=== PATIENT | male | born 1985 | race Two or more races ===

== ENCOUNTER 2020-11-12 17:35 | Emergency (ER) | payer SELFPAY ==
[~2020-11-12] VITALS: Ht 180.3 cm; Wt 77.1 kg
[2020-11-12] MEDS ORDERED: ONDANSETRON HCL/PF 4 MG/2 ML VIAL ONE (18:09)
[2020-11-12] MEDS ORDERED: MORPHINE SULFATE INJ 2 MG/ML DISP.SYRIN ONE (18:10)
[2020-11-12] MEDS: ONDANSETRON HCL/PF 4 MG/2 ML VIAL IVP ONE (18:10)
[2020-11-12] MEDS: IV NS 0.9% 1,000 ML BAG IV ONE (18:10)
[2020-11-12] MEDS: MORPHINE SULFATE INJ 2 MG/ML DISP.SYRIN IV ONE (18:10)
[2020-11-12 18:12] LABS: BASOPHILS % (AUTO) 0.4 % (0.0-2.0); EOSINOPHILS % (AUTO) 0.1 % (0.0-6.0); HEMATOCRIT 42 % (39-51); HEMOGLOBIN 14.5 g/dL (13.5-17.5); LYMPHOCYTES # (AUTO) 1.6 K/uL (0.8-4.8); LYMPHOCYTES % (AUTO) 21.2 % (20.0-44.0); MEAN CORPUSCULAR HGB CONC 34 g/dl (31.0-36.0); MEAN CORPUSCULAR VOLUME 92 fL (80-96); MONOCYTES # (AUTO) 0.3 K/uL (0.1-1.30); MONOCYTES % (AUTO) 4.2 % (2.0-12.0); NEUTROPHILS # (AUTO) 5.7 K/uL (1.8-8.9); NEUTROPHILS % (AUTO) 74.1 % (43.0-81.0); PLATELET COUNT (AUTO) 364 K/uL (150-450); RED BLOOD CELL COUNT(AUTO) 4.57 MIL/uL (4.5-6.0); WHITE BLOOD COUNT (AUTO) 7.7 K/uL (4.3-11.0)
--- NOTE | 2020-11-12 18:16 | NUR ---
Patient came in to the er c/o right rib pain. On room air, breathing evenly and unlabored. Connected to the monitor and pulse ox. kept comfortable, will continue to monitor accordingly.
--- NOTE | 2020-11-12 18:20 | NUR ---
kristine at bedside for x-ray.
[2020-11-12 18:39] LABS: CREATININE 0.9 mg/dL (0.6-1.3)
[2020-11-12 18:45] LABS: ALBUMIN 4.3 g/dL (3.4-5.0); BILIRUBIN,DIRECT 0.1 mg/dL (0.0-0.2); BILIRUBIN,TOTAL 0.2 mg/dL (0.2-1.0); TOTAL PROTEIN, SERUM 8.1 g/dL (6.4-8.2)
[2020-11-12] MEDS ORDERED: CARI350T PO (19:22)
[2020-11-12 19:32] VITALS: BP 118/81
--- NOTE | 2020-11-12 19:33 | NUR ---
Patient discharged to home in stable condition. Written and verbal after care instructions given. Patient verbalizes understanding of instruction.IV removed. Catheter intact and site benign. Pressure and 4x4 applied to site. No bleeding noted.
== END 2020-11-12 19:33 | disposition home or self-care (01) ==
LOC: ER 18:18
DX: R07.81 Pleurodynia (principal); M54.9 Dorsalgia, unspecified; R07.89 Other chest pain; Z88.6 Allergy status to analgesic agent; W11.XXXA Fall on and from ladder, initial encounter; Y93.89 Activity, other specified; Y92.89 Other specified places as the place of occurrence of the external cause; Y99.8 Other external cause status
CPT/HCPCS: 36415; 71045; 72074; 72110; 80048; 80076; 85025; 85730; 96361; 96374; 96375; 99284; J2270; J2405; J7030

== ENCOUNTER 2020-12-23 14:56 | Emergency (ER) | payer MEDICAID ==
[~2020-12-23] VITALS: Ht 180.3 cm; Wt 77.1 kg
[~2020-12-23 14:56] MED LIST: CARI350T PO
[2020-12-23] MEDS ORDERED: ACETAMINOPHEN ES 500 MG TABLET PO ONE ×2 (15:30→16:00)
[2020-12-23] MEDS ORDERED: ACETAMINOPHEN ES 500 MG TABLET ONE (15:40)
--- NOTE | 2020-12-23 15:47 | NUR ---
R sided rib pain s/p fall on stairs. PT AAOX4, VSS. RR EVEN & UNLABORED. DENIES SOB, DIZZINESS, N/V AT THIS TIME. PT SEEN & EVAL'D BY DR. HAQUE. WILL CONT TO MONITOR.
[2020-12-23] MEDS ORDERED: HYDR-4303 PO (16:22)
[2020-12-23 16:33] VITALS: BP 142/86
--- NOTE | 2020-12-23 16:33 | NUR ---
Patient discharged to home in stable condition. Written and verbal after care instructions given. Patient verbalizes understanding of instruction.
== END 2020-12-23 16:34 | disposition home or self-care (01) ==
LOC: ER 14:58
DX: R07.81 Pleurodynia (principal); Z88.6 Allergy status to analgesic agent; Z79.899 Other long term (current) drug therapy; W01.0XXA Fall on same level from slipping, tripping and stumbling without subsequent striking against object, initial encounter; Y93.89 Activity, other specified; Y92.89 Other specified places as the place of occurrence of the external cause; Y99.8 Other external cause status
CPT/HCPCS: 71100-TC